=== PATIENT | male | born 1985 | race Two or more races ===

== ENCOUNTER 2021-03-28 09:04 | Day surgery (SDC) | payer MEDICARE, OTHER ==
[~2021-03-28] VITALS: Ht 185.4 cm; Wt 83.9 kg
[2021-03-28 09:37] VITALS: BP 147/86
[2021-03-28] MEDS ORDERED: FEXO1TAB29 PO (09:45)
[2021-03-28] MEDS ORDERED: LORA-702 PO (09:45)
[2021-03-28] MEDS ORDERED: OXYMETAZOLINE NASAL SPRAY 0.05%,30ML ONE ×2 (09:48→09:49)
[2021-03-28] MEDS ORDERED: MUPIROCIN OINT 2%, 22GM ONE (09:48)
[2021-03-28] MEDS ORDERED: EPINEPHRINE 1 MG/ML, 1ML ONE (09:48)
[2021-03-28] MEDS ORDERED: LIDOCAINE/PF 1%, 30ML ONE (09:48)
[2021-03-28] MEDS ORDERED: MIDAZOLAM 1 MG/ML, 2ML ONE (09:53)
[2021-03-28] MEDS ORDERED: FENTANYL PF 100 MCG/2ML ONE ×2 (09:53→12:29)
[2021-03-28] MEDS ORDERED: LIDOCAINE 4%, 4 ML SYR/CANN TP ONE (09:58)
[2021-03-28] MEDS ORDERED: LACTATED RINGERS 1,000 ML IV SCH (10:00)
[2021-03-28] MEDS ORDERED: CHLORHEXIDINE 15 ML UDC PO ONE (10:00)
[2021-03-28] MEDS ORDERED: PROMETHAZINE 25 MG SUPP PR PRN (11:30)
[2021-03-28] MEDS ORDERED: ONDANSETRON 2MG/ML, 2ML IVPush PRN (11:30)
[2021-03-28] MEDS ORDERED: METHOCARBAMOL 1,000 MG in DEXTROSE 5% 100 ML IV PRN (11:30)
[2021-03-28] MEDS ORDERED: ACETAMINOPHEN 325 MG TABLET PO PRN (11:30)
[2021-03-28] MEDS ORDERED: LABETALOL 5MG/ML, 20ML IV PRN (11:30)
[2021-03-28] MEDS ORDERED: PROMETHAZINE 25 MG/ML, 1ML IVPush PRN (11:30)
[2021-03-28] MEDS ORDERED: hydrALAzine 20 MG/ML, 1ML IV PRN (11:30)
[2021-03-28] MEDS ORDERED: HYDROmorphone 1 MG/ML, 1ML INJ IVPush PRN (11:30)
[2021-03-28] MEDS ORDERED: METOPROLOL 1 MG/ML, 5ML IV PRN (11:30)
[2021-03-28] MEDS ORDERED: MEPERIDINE/PF 25MG/0.5ML IVPush PRN (11:30)
[2021-03-28] MEDS ORDERED: LORazepam 2 MG/ML, 1ML IVPush PRN (11:30)
[2021-03-28] MEDS ORDERED: SUCCINYLCHOLINE 20 MG/ML, 10ML ONE (12:11)
[2021-03-28] MEDS ORDERED: GLYCOPYRROLATE 0.2MG/1ML, 5ML ONE (12:11)
[2021-03-28] MEDS ORDERED: PROPOFOL 10 MG/ML, 20ML ONE (12:11)
[2021-03-28] MEDS ORDERED: ROCURONIUM 10MG/ML,5ML ONE (12:11)
[2021-03-28] MEDS ORDERED: ONDANSETRON 2MG/ML, 2ML ONE (12:11)
[2021-03-28] MEDS ORDERED: DEXAMETHASONE 4 MG/ML, 1ML ONE (12:11)
[2021-03-28] MEDS ORDERED: CEFAZOLIN 1,000 MG ONE (12:11)
[2021-03-28] MEDS ORDERED: NEOSTIGMINE 1 MG/ML, 10ML ONE (12:11)
[2021-03-28] MEDS: FENTANYL PF 100 MCG/2ML IV PRN ×2 (12:31→12:43)
[2021-03-28] MEDS ORDERED: OXYcodone 5 MG/5 ML ORAL.SOL UDC ONE (12:35)
[2021-03-28] MEDS ORDERED: ACETAMINOPHEN 650 MG/20.3 ML UDC ONE (12:35)
[2021-03-28] MEDS: OXYcodone 5 MG/5 ML ORAL.SOL UDC PO PRN ×2 (12:37→14:25)
== END 2021-03-28 14:35 | disposition home or self-care (01) ==
LOC: OUT 09:04
PROVIDERS: ATTEND Otolaryngology
DX: J34.2 Deviated nasal septum (principal); J34.89 Other specified disorders of nose and nasal sinuses
CPT/HCPCS: 30520; 30630; C1763; J0171; J0330; J0690; J1100; J2250; J2405; J2704; J2710; J3010; J7120